=== PATIENT | male | born 1985 | race African-American/Black ===

== ENCOUNTER 2016-07-31 10:27 | Emergency (ER) | payer MEDICAID ==
[~2016-07-31] VITALS: Ht 188 cm; Wt 81.6 kg
[2016-07-31 10:44] VITALS: BP 137/64
== END 2016-07-31 12:38 | disposition left against medical advice (07) ==
LOC: ER 10:27
DX: M25.512 Pain in left shoulder (principal); Z53.21 Procedure and treatment not carried out due to patient leaving prior to being seen by health care provider

== ENCOUNTER 2016-09-23 14:06 | Emergency (ER) | payer SELFPAY ==
[~2016-09-23] VITALS: Ht 188 cm; Wt 99.8 kg
[2016-09-23 14:25] VITALS: BP 120/67
== END 2016-09-23 15:38 | disposition home or self-care (01) ==
LOC: ER 14:06
DX: L73.9 Follicular disorder, unspecified (principal); H66.92 Otitis media, unspecified, left ear; F17.210 Nicotine dependence, cigarettes, uncomplicated; F12.10 Cannabis abuse, uncomplicated; J45.909 Unspecified asthma, uncomplicated

== ENCOUNTER 2016-09-29 12:14 | Emergency (ER) | payer MEDICAID, OTHER ==
[~2016-09-29] VITALS: Ht 188 cm; Wt 95.3 kg
[2016-09-29 12:44] VITALS: BP 113/51
== END 2016-09-29 18:08 | disposition left against medical advice (07) ==
LOC: ER 12:24
DX: R21 Rash and other nonspecific skin eruption (principal); Z53.21 Procedure and treatment not carried out due to patient leaving prior to being seen by health care provider

== ENCOUNTER 2017-01-05 09:32 | Emergency (ER) | payer SELFPAY ==
[~2017-01-05] VITALS: Ht 188 cm; Wt 90.7 kg
[2017-01-05 10:40] VITALS: BP 139/37
== END 2017-01-05 12:18 | disposition home or self-care (01) ==
LOC: ER 09:32
DX: N63 Unspecified lump in breast (principal); F17.210 Nicotine dependence, cigarettes, uncomplicated; F12.10 Cannabis abuse, uncomplicated; J45.909 Unspecified asthma, uncomplicated
CPT/HCPCS: 76642

== ENCOUNTER 2018-08-23 23:56 | Emergency (ER) | payer MEDICAID, OTHER ==
[~2018-08-23] VITALS: Ht 188 cm; Wt 93.0 kg
[2018-08-24 00:19] VITALS: BP 114/53
[2018-08-24] MEDS ORDERED: cefTRIAXone SOD 1,000 MG VL IM ONE (01:45)
[2018-08-24] MEDS ORDERED: methylPREDNISolone SOD SUCC 125 MG/2 ML VL IM ONE (01:45)
[2018-08-24] MEDS ORDERED: cefTRIAXone SOD 1,000 MG VL ONE (01:51)
[2018-08-24] MEDS ORDERED: methylPREDNISolone SOD SUCC 125 MG/2 ML VL ONE (01:51)
== END 2018-08-24 02:33 | disposition home or self-care (01) ==
LOC: ER 23:59
DX: J04.0 Acute laryngitis (principal); J45.909 Unspecified asthma, uncomplicated; F17.210 Nicotine dependence, cigarettes, uncomplicated; F12.10 Cannabis abuse, uncomplicated
CPT/HCPCS: 71046; 96372; 99283; J0696; J2930